=== PATIENT | female | born 1940 | race Caucasian/White ===

== ENCOUNTER 2018-09-30 14:37 | Emergency (ER) | payer MEDICARE, OTHER ==
--- NOTE | 2018-09-30 15:40 | EDM.PDOC ---
ED HPI GENERAL MEDICAL PROBLEM - General Chief Complaint: Lower Extremity Injury/Pain Stated Complaint: FALL Time Seen by Provider: 09/30/18 15:10 Source of Information: Reports: Patient History Limitations: Reports: No Limitations - History of Present Illness INITIAL COMMENTS - FREE TEXT/NARRATIVE: Leora is a 77 year old female who presents to the ED ambulatory with crutches with c/o left foot pain. She reports she was walking down the steps when she missed the bottom 2 steps. Reports she fell and felt a "crunch" in her foot. Noted immediate swelling and bruising to left outer foot. She reports it is painful to bear weight on it. Does have chronic numbness/tingling in bilateral feet, reports it is no worse than baseline. Has ice applied, but has not taken anything for pain. She denies other injuries or areas of pain. 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 Pain Score (Numeric/FACES): 3 - Related Data Allergies Allergy/AdvReac Type Severity Reaction Status Date / Time codeine Allergy Hallucinati Verified 09/30/18 15:19 ons enoxaparin Allergy Hallucinati Verified 09/30/18 15:19 ons neomycin Allergy Other Verified 09/30/18 15:19 pantoprazole Allergy Other Verified 09/30/18 15:19 solifenacin [From Vesicare] Allergy Anaphylactic Verified 09/30/18 15:19 Shock Home Meds: Home Meds Acetaminophen 500 mg PO DAILY PRN 09/30/18 [History] Cholecalciferol (Vitamin D3) [Vitamin D3] 5,000 units PO DAILY 09/30/18 [History ] Lisinopril 5 mg pe PO DAILY 09/30/18 [History] PARoxetine [Paxil] 10 mg PO DAILY 09/30/18 [History] Simvastatin [Zocor] 40 mg PO DAILY 09/30/18 [History] metFORMIN [Glucophage] 500 mg PO DAILY 09/30/18 [History] Past Medical History Cardiovascular History: Reports: High Cholesterol, Hypertension Respiratory History: Reports: Other (See Below) Other Respiratory History: bronchopneumonia Musculoskeletal History: Reports: Osteoarthritis Endocrine/Metabolic History: Reports: Diabetes, Type II - Past Surgical History Other Musculoskeletal Surgeries/Procedures:: spinal stenosis, parathesias, fatigue Social & Family History - Tobacco Use Smoking Status *Q: Former Smoker Used Tobacco, but Quit: Yes Month/Year Tobacco Last Used: unknown Review of Systems - Review of Systems Review Of Systems: ROS reveals no pertinent complaints other than HPI. ED EXAM, GENERAL - Physical Exam Exam: See Below Exam Limited By: No Limitations General Appearance: Alert, WD/WN, No Apparent Distress Peripheral Pulses: 1+: Posterior Tibial (L), 2+: Dorsalis Pedis (L) Extremities: Normal Range of Motion, Normal Capillary Refill, Other (tenderness to proximal aspect of left 5th metatarsal, small area of bruising and swelling noted to left 5th metatarsal) Neurological: Abnormal Gait (limping LLE, uses crutches) Psychiatric: Normal Affect, Normal Mood Course - Vital Signs Last Recorded V/S: Last Vital Signs Temp 97.8 F 09/30/18 14:49 Pulse 78 09/30/18 14:49 Resp 16 09/30/18 14:49 BP 117/62 09/30/18 14:49 Pulse Ox 96 09/30/18 14:49 - Orders/Labs/Meds Orders: Active Orders 24 hr Category Date Time Status Foot Comp Min 3V Lt [CR] Stat Exams 09/30/18 15:05 Taken - Re-Assessments/Exams Free Text/Narrative Re-Assessment/Exam: Discussed xray results with patient. Does have nondisplaced proximal 5th metatarsal fracture of left foot. Cam boot applied. Patient already currently uses crutches. Recommended Cam boot on with weight bearing. Discussed need for follow up to ensure adequate healing. Departure - Departure Time of Disposition: 15:36 Disposition: Home, Self-Care 01 Clinical Impression: Metatarsal fracture Qualifiers: Encounter type: initial encounter Metatarsal bone: fifth Fracture type: closed Fracture alignment: nondisplaced Laterality: left Qualified Code(s): S92.355A - Nondisplaced fracture of fifth metatarsal bone, left foot, initial encounter for closed fracture - Discharge Information *PRESCRIPTION DRUG MONITORING PROGRAM REVIEWED*: Not Applicable *COPY OF PRESCRIPTION DRUG MONITORING REPORT IN PATIENT [place]ER[place]: Not Applicable Instructions: Metatarsal Fracture Forms: ED Department Discharge Additional Instructions: - Alternate Tylenol and ibuprofen as needed for pain - Cam boot on at all times when ambulatory - Ice affected area. This is especially important the next few days when swelling is most apparent. - Follow up with PCP for recheck with xrays prior in 4 weeks - My Orders Last 24 Hours: My Active Orders 09/30/18 15:05 Foot Comp Min 3V Lt [CR] Stat - Assessment/Plan Last 24 Hours: My Active Orders 09/30/18 15:05 Foot Comp Min 3V Lt [CR] Stat
== END 2018-09-30 15:55 | disposition home or self-care (01) ==
LOC: CC.ED 14:37
DX: S92.355A Nondisplaced fracture of fifth metatarsal bone, left foot, initial encounter for closed fracture (principal); E11.9 Type 2 diabetes mellitus without complications; I10 Essential (primary) hypertension; E78.00 Pure hypercholesterolemia, unspecified; Z88.5 Allergy status to narcotic agent; Z88.8 Allergy status to other drugs, medicaments and biological substances; Z88.1 Allergy status to other antibiotic agents; Z79.84 Long term (current) use of oral hypoglycemic drugs; Z79.899 Other long term (current) drug therapy; Z87.891 Personal history of nicotine dependence; W10.9XXA Fall (on) (from) unspecified stairs and steps, initial encounter
CPT/HCPCS: 73630-LT; 99283; 99283-25